=== PATIENT | female | born 1985 | race Hispanic/Latino ===

== ENCOUNTER 2018-10-20 18:30 | Observation (INO) | payer MEDICAID, SELFPAY ==
--- NOTE | 2018-10-20 22:35 | PDOC.FPROB ---
FMR OB H&P: HPI - History of Present Illness Chief Complaint: Uncontrolled DMII Indentification: 33yo @6wks by LMP History of Present Illness: 33yo @6wks by LMP directly admitted from [facility] for DMII with uncontrolled blood glucoses. She has attempted lifestyle modifications. Had been successful with lifestyle modifications. Prior to diabetes controlled with Metformin and Glyburide. Here to initiate insulin. Primary Care Physician: Dr. Kris Jay FMR OB H&P: Current - Care : 4 Para: 2011 Gestational age: 6wks Dating Criteria: LMP - OB Labs HIV: negative HepBsAg: negative Rubella: non-immune Gonorrhea: negative Chlamydia: negative Pap Smear: 2018 A1c: 7.5% GBS: unknown FMR OB H&P: History - Past Medical History PMH: DMII - OB History OB History: 2 prior C/S - Family History Family History: Noncontributory FMR OB H&P: Medications - Current Home Medications: Medication Instructions Recorded Confirmed Type glyBURIDE [Glyburide] 5 mg PO DAILY 10/20/18 10/21/18 History metFORMIN [Glucophage] 1,000 mg PO QAM-WM 10/20/18 10/21/18 History Vitamin 1 tablet PO DAILY 10/21/18 10/21/18 History Allergies/Adverse Reactions: Allergies Allergy/AdvReac Type Severity Reaction Status Date / Time No Known Drug Allergies Allergy Verified 10/20/18 23:57 FMR OB H&P: ROS - Review of Systems General: denies: fever/chills, weight/appetite/sleep changes, fatigue Eyes: denies: vision changes ENT: denies: nasal congestion, rhinorrhea Cardiovascular: denies: chest pain, palpitation Respiratory: denies: cough, congestion Gastrointestinal: denies: abdominal pain Genitourinary (Female): denies: dysuria, vaginal bleeding, contractions Neurologic: denies: numbness, headache FMR OB H&P: Vital Signs - Maternal Vital signs: Selected Entries 10/20/18 22:55 Temperature 97.7 F Pulse Rate 66 Blood Pressure 138/69 [Semi-Fowlers] Respiratory 16 Rate O2 Sat by Pulse 98 Oximetry Oxygen Delivery Room Air Method FMR OB H&P: Physical Exam - Physical Exam General: NAD, awake, alert and oriented HEENT: normocephalic and atraumatic, MMM, conjunctiva clear, grossly normal hearing, oropharynx clear Neck: supple, trachea midline Heart: RRR, no murmurs/rubs/gallops, pulses present, no edema General: CTAB, no respiratory distress, no wheezing Abdomen: soft, non-tender, bowel sound present Musculoskeletal: pulses present, no atrophy Neurological: no focal deficit Skin: good tugor, capillary refill <2 seconds Lymphatic: no petechia Psychiatric: intact recent and remote memory, good judgement and insight, normal mood and affect FMR OB H&P: Results - Labs Lab results: Laboratory Results - last 24 hr 10/20/18 19:15 POC Glucose 129 H FMR OB H&P: A/P - Problem List (1) Pregestational diabetes mellitus, modified White class B Current Visit: Yes Status: Acute Code(s): O24.319 - UNSP PRE-EXISTING DIABETES IN , UNSP TRIMESTER (2) First trimester Current Visit: Yes Status: Acute Code(s): Z34.91 - ENCNTR FOR SUPRVSN OF NORMAL PREG, UNSP, FIRST TRIMESTER Disposition: 33yo @6wks by LMP with pmh of DMII presents for uncontrolled DM for insulin initiation sIUP complicated by pregestational DM requiring insulin - A1c 7.5% on 10/16/18 - Starting 16U NPH in AM, 8U in HS - Humolog 5U TID with meals - Accuchecks Fasting and 2 hr postprandial - CC diet, and diabetes education - Admit to relationship management lead/womens Code Status: FULL DVT ppx: SCDs PCP: [facility] (Dr. Jay) Discussion: Date/Time: 10/20/182232 This H&P was discussed with Dr. Romero who agree with the above documentation and plan. Addendum - Attending - Attending Attestation Date/Time: 10/21/182201 I personally evaluated the patient and discussed the management with Dr. Whitten and team. I agree with the History, Examination, Assessment and Plan documented above with any addition or exceptions noted below. Being insulin. Complete 1t workup pending further discussion.
[2018-10-20] MEDS ORDERED: HumaLOG 300 UNITS/3 ML VIAL SC PRN (23:05)
[2018-10-20] MEDS ORDERED: Dextrose 50% Abboject 50 ML SYRINGE SLOW IVP PRN (23:05)
[2018-10-20] MEDS ORDERED: Dextrose 5% in Water 1,000 ML IV PRN (23:05)
[2018-10-21] MEDS: Sodium Chloride 0.9% 10 ML ONE ×2 (01:15→06:10)
[2018-10-21] MEDS ORDERED: Doxylamine 25 MG TAB PO PRN (02:26)
[2018-10-21] MEDS ORDERED: pyridOXINE 50 MG (B6) TAB PO PRN (02:26)
--- NOTE | 2018-10-21 06:56 | PDOC.OBAPN ---
[facility] OB AP PN: Sub - Interval History Hospital Day: 2 Chief Complaint: uncontrolled DMII Indentification: Interval History: Patient started on scheduled insulin regimen today. R OB AP PN: Obj - Maternal Vital signs: BP: 125/64 HR: 87 RR: 20 Tmax: 98F Pox: 98% on RA Wt: 80.4 kg [facility] OB PN: Exam - Physical Exam General: NAD, awake, alert and oriented HEENT: normocephalic and atraumatic, grossly normal vision, grossly normal hearing Neck: FROM Heart: RRR, normal S1/S2, pulses present, no edema General: CTAB, no respiratory distress, good air movement, no rales/rhonchi, no wheezing, no retractions Abdomen: soft, non-tender Musculoskeletal: FROM in all four extremities Neurological: cranial nerves II through XII intact, sensation to pain,touch and proprioception grossly normal, no focal deficit Skin: no rash, good tugor Lymphatic: no unusual bruising or bleeding, no purpura, no petechia Psychiatric: intact recent and remote memory, good judgement and insight, normal mood and affect [facility] OB PN: Data - Labs Lab results: Laboratory Results - last 24 hr 10/20/18 10/21/18 19:15 06:09 POC Glucose 129 H 176 H [facility] OB PN: A/P - Problem List (1) Pregestational diabetes mellitus, modified White class B Current Visit: Yes Status: Acute Code(s): O24.319 - UNSP PRE-EXISTING DIABETES IN , UNSP TRIMESTER (2) Anxiety Current Visit: Yes Status: Acute Code(s): F41.9 - ANXIETY DISORDER, UNSPECIFIED (3) First trimester Current Visit: Yes Status: Acute Code(s): Z34.91 - ENCNTR FOR SUPRVSN OF NORMAL PREG, UNSP, FIRST TRIMESTER Disposition: 33yo @ 6.1 wks by LMP with pmh of DMII presents for uncontrolled DM for insulin initiation sIUP complicated by uncontrolled pregestational DMII: - A1c 7.5% on 10/16/18. - Will start on VICKY insulin regimen with 16U NPH in AM & 8U in HS today. - Humalog 5U TID with meals. - Will get AM fasting & 2 hour PP Accuchecks & titrate insulin regimen PRN with 2hr PP goal of <120 and AM fasting of <95. - CC diet and diabetes education. UTI: - Urine culture from [facility] on 10/18/18 + for GBS and staph aureus. Will treat w/ PO Augmentin for 7 days based on sensitivities. Suspected vaginal candidiasis: - Per PCP patient was recently treated for candidiasis but patient still reporting vaginal itching this AM. - Will get a repeat VP3 and start on empiric topical clotrimazole this AM. Anxiety: - Patient reports being switched to a anxiolytic medication safe in recently. Will touch base with PCP & consider resuming while in the hospital. Discussion: Date/Time: 10/21/18 0654 This H&P was discussed with Dr. Renteria and Dr. Sarmiento who agree with the above documentation and plan. Addendum - Attending - Attending Attestation Date/Time: 10/21/18 1320 I personally evaluated the patient and discussed the management with Dr. Swanson. I agree with the History, Examination, Assessment and Plan documented above with any addition or exceptions noted below.
[2018-10-21] MEDS ORDERED: Amoxicillin/Potassium Clav 500 MG TAB PO SCH (09:00)
[2018-10-21] MEDS ORDERED: NPH, Human Insulin Isophane 300 UNIT/3 ML VIAL SC SCH ×5 (09:00→21:00)
[2018-10-21] MEDS: Prenatal Vitamin 1 TAB PO SCH (10:14)
[2018-10-21] MEDS: HumaLOG 300 UNITS/3 ML VIAL SC SCH ×2 (10:14→14:32)
[2018-10-21] MEDS ORDERED: Ondansetron ODT 4 MG TAB SL PRN (14:52)
--- NOTE | 2018-10-21 16:05 | ULT ---
TRANSVAGINAL PELVIC ULTRASOUND WITH DOPPLER: 10/21/18 HISTORY: female with unknown dates. FINDINGS: The uterus measures 9.6 x 4.1 x 6.6 cm. The right ovary measures 2.9 x 3.2 x 2.3 cm with demonstration of flow to the right ovary. The left ovary is not seen. A single intrauterine gestation is seen with measurements corresponding to an estimated gestational a ge of 6 weeks, 0 days and ADE[place]A at 06/16/19. The crown-rump length measures 0.41 cm and the gestational sac diameter measures 1 cm. the heart rate measures 117 beats per minute. No subchorionic blee d is seen. No free fluid is noted in the pelvis. IMPRESSION: Single live intrauterine of 6 weeks estimated gestational age and ADEOLA at 06/16/19. POS: [facility]
[2018-10-21] MEDS ORDERED: HumaLOG 300 UNITS/3 ML VIAL SC SCH (17:00)
[2018-10-21] MEDS ORDERED: Clotrimazole 2% 3 Day Vag Cr 22.2 GM TUBE VAG SCH (21:00)
[2018-10-21 21:56] LABS: Bilirubin Negative (Negative); Blood, Urine Negative (Negative); Clarity CLEAR (Clear); Glucose, Urine (Dipstick) Negative (Negative); Leukocyte Negative (Negative); Nitrite Negative (Negative); Protein, Urine (Dipstick) Negative (Neg-Trace); Specific Gravity, Urine 1.006 (1.002-1.036); Urobilinogen 0.2 mg/dL (0.2-1.0)
[2018-10-21 21:58] LABS: Bacteria/HPF None Seen HPF (None Seen); Hyaline Casts/LPF 4-6 HYALINE CAST LPF (0-3 Hyaline); Pathc Cast-AUWi Flag 1.76 (0-2.49); RBC/HPF 0-3 HPF (0-3); Squamous Epithelial 0-3 HPF (0-3); WBC/HPF None Seen HPF (0-3)
[2018-10-21 22:00] LABS: Urine Culture Reflex No No
--- NOTE | 2018-10-22 06:10 | PDOC.OBAPN ---
FMR OB AP PN: Sub - Interval History Hospital Day: 3 Chief Complaint: uncontrolled pre-GDM Indentification: Interval History: Patient started on VICKY insulin regimen yesterday w/ improved BG levels. FMR OB AP PN: Obj - Maternal Vital signs: BP: 118/58 HR: 62 RR: 16 Tmax: 98.4F Pox: 96% on RA Wt: 80.4 kg FMR OB AP PN: Exam - Physical Exam General: NAD, awake, alert and oriented HEENT: normocephalic and atraumatic, grossly normal vision, grossly normal hearing Neck: supple, FROM Heart: RRR, normal S1/S2, pulses present, no edema General: CTAB, no respiratory distress, good air movement, no rales/rhonchi, no wheezing, no retractions Abdomen: soft, non-tender, bowel sound present Musculoskeletal: FROM in all four extremities Neurological: cranial nerves II through XII intact, sensation to pain,touch and proprioception grossly normal, no focal deficit Skin: no rash, good tugor Lymphatic: no unusual bruising or bleeding, no purpura Psychiatric: intact recent and remote memory, good judgement and insight, normal mood and affect FMR OB AP PN: Data - Labs Lab results: Laboratory Results - last 24 hr 10/21/18 10/21/18 10/21/18 06:09 10:25 13:18 POC Glucose 176 H 177 H 101 Urine Color Urine Clarity Urine pH Ur Specific [place] Urine Protein Urine Glucose (UA) Urine Ketones Urine Blood Urine Nitrite Urine Bilirubin Urine Urobilinogen Ur Leukocyte Esterase Urine RBC Urine WBC Ur Squamous Epith Cells Urine Bacteria Hyaline Casts Urine Culture Reflexed 10/21/18 10/21/18 10/21/18 14:03 17:47 21:40 POC Glucose 103 156 H Urine Color YELLOW Urine Clarity CLEAR Urine pH 6.0 Ur Specific [place] 1.006 Urine Protein Negative Urine Glucose (UA) Negative Urine Ketones 15 H Urine Blood Negative Urine Nitrite Negative Urine Bilirubin Negative Urine Urobilinogen 0.2 Ur Leukocyte Esterase Negative Urine RBC 0-3 Urine WBC None Seen Ur Squamous Epith Cells 0-3 Urine Bacteria None Seen Hyaline Casts 4-6 HYALINE CAST H Urine Culture Reflexed No 10/22/18 02:09 POC Glucose 106 Urine Color Urine Clarity Urine pH Ur Specific [place] Urine Protein Urine Glucose (UA) Urine Ketones Urine Blood Urine Nitrite Urine Bilirubin Urine Urobilinogen Ur Leukocyte Esterase Urine RBC Urine WBC Ur Squamous Epith Cells Urine Bacteria Hyaline Casts Urine Culture Reflexed FMR OB AP PN: A/P - Problem List (1) Pregestational diabetes mellitus, modified White class B Status: Acute Code(s): O24.319 - UNSP PRE-EXISTING DIABETES IN , UNSP TRIMESTER (2) Anxiety Status: Acute Code(s): F41.9 - ANXIETY DISORDER, UNSPECIFIED (3) First trimester Status: Acute Code(s): Z34.91 - ENCNTR FOR SUPRVSN OF NORMAL PREG, UNSP, FIRST TRIMESTER Disposition: 33yo @ 6.2 wks by LMP & 6.1 week sono with pmh of DMII who presents for insulin initiation for uncontrolled DM. Uncontrolled pregestational DMII: - A1c 7.5% on 10/16/18. - Will continue VICKY insulin regimen with 25U NPH in AM & 9U HS. Will give humalog BID w/ breakfast and dinner at dose of 12 & 9U respectively. - Will get AM fasting & 2 hour PP Accuchecks & titrate insulin regimen PRN with 2hr PP goal of <120 and AM fasting of <95. - CC diet and diabetes education. - Will consider measuring a 24 hour urine protein to assess for renal impairment 2/2 DMII. sIUP @ 6.2 weeks by 6.1 week sono: - Dates confirmed via transvaginal US done yesterday in hospital. - Will continue routine antepartum care w/ PCP. Vulvovaginal candidiasis: - Confirmed via VP3 obtained yesterday AM. Patient never picked up gonazole from pharmacy. - Will continue 2% vaginal clotrimazole for total of 3 days. Anxiety: - Patient reports being switched to a anxiolytic medication safe in recently. - PCP denies starting on any anxiety meds. Will touch base with pharmacy today but troy recommend patient follow-up w/ PCP upon discharge to discuss starting meds for anxiety. UTI, ruled out: - Urine culture from [facility] on 10/18/18 + for GBS and staph aureus; however, UA via straight cath obtained yesterday was WNLs w/ only ketones noted. No need for abx treatment. Discussion: Date/Time: 10/22/18 0609 This H&P was discussed with Dr. Renteria and Dr. Sarmeinto who agree with the above documentation and plan. Addendum - Attending - Attending Attestation Date/Time: 10/23/18 0801 I personally evaluated the patient and discussed the management with Dr. Swanson. I agree with the History, Examination, Assessment and Plan documented above with any addition or exceptions noted below.
[2018-10-22] MEDS ORDERED: NPH, Human Insulin Isophane 300 UNIT/3 ML VIAL SC SCH (07:00)
[2018-10-22] MEDS ORDERED: HumaLOG 300 UNITS/3 ML VIAL SC SCH ×2 (07:30→17:00)
[2018-10-22] MEDS: HumuLIN 70/30 (300 UNITS/3 ML VIAL) SC SCH ×2 (11:23→18:56)
[2018-10-22] MEDS: Prenatal Vitamin 1 TAB PO SCH (14:13)
[2018-10-22 17:00] VITALS: BP 109/60; TEMP 97.7
== END 2018-10-22 19:45 | disposition home or self-care (01) ==
LOC: ERS 18:30 → 3SW 22:47 → INTOOBSV 22:47 → 3SE 10-21 09:03
PROVIDERS: ADMIT Family Medicine; ATTEND Family Medicine
DX: O24.111 Pre-existing type 2 diabetes mellitus, in pregnancy, first trimester (principal); E11.9 Type 2 diabetes mellitus without complications; Z3A.01 Less than 8 weeks gestation of pregnancy; Z79.84 Long term (current) use of oral hypoglycemic drugs
CPT/HCPCS: 36416; 51701; 76856; 81001; 87480; 87510; 87660; 99285; A4353; G0378; J1815

== ENCOUNTER 2019-04-14 08:40 | Outpatient (CLI) | payer OTHER ==
--- NOTE | 2019-04-14 09:37 | ULT ---
US OB Complete STANDARD History: Anatomy, size and dates, cervical length. Supervision about a high-risk pregnancies, second trimester Comparison: Pelvic ultrasound October 2018 Findings: Real-time grayscale, color, and spectral analysis of the gravid uterus was performed. Single viable intrauterine with average ultrasound age 33 week 3 day with estimated date of delivery May 30, 2019. Estimated weight is 5 lbs. 3 oz., 94th percentile. Biometry: Biparietal diameter: 8.22 cm, 33 week 1 day Head circumference: 29.11 cm, 32 week 1 day Abdominal circumference: 31.52 cm, 35 week 4 day Femur length: 6.31 cm, 32 week 5 day Heart rate documented at 140 bpm. The cervix measures 2.4 cm in length although can be underestimated with transabdominal approach. Anatomy: Lateral ventricular size upper limits of normal at 9 mm. Left renal pelvis measures 5 mm. The head, cerebellum, cisterna magna, four-chamber heart, stomach, cord insertion, bladder, spine, li ps/nose, upper extremities, lower extremity is, three-vessel cord are all normal. Amniotic fluid index measures 21.4 cm, mildly elevated. The placenta is anterior and the presentation is cephalic. No placenta previa. Impression: 1. Single viable intrauterine with average ultrasound age 33 week 3 day with estimated date of delivery May 30, 2019. 2. Mild prominence of the lateral ventricle measuring 9 mm. Close attention on follow-up imaging scot mmended. 3. Mild prominence left renal pelvis measuring 5 mm. 4. Cervical length of 2.4 cm although can be underestimated with transabdominal approach. 5. Increased amniotic fluid index of 21.4 cm.
== END 2019-04-14 08:41 | disposition home or self-care (01) ==
LOC: BICULT 08:40
PROVIDERS: ATTEND Family Medicine
DX: O09.893 Supervision of other high risk pregnancies, third trimester (principal); Z3A.33 33 weeks gestation of pregnancy
CPT/HCPCS: 76805

== ENCOUNTER 2019-05-08 15:27 | Day surgery (SDC) | payer OTHER ==
[2019-05-08 16:28] VITALS: BMI 40.0
[2019-05-08] MEDS ORDERED: FLU VACC QS2019-20(6MOS UP)/PF 60 MCG/0.5 ML SYRINGE IM ONE (16:45)
--- NOTE | 2019-05-08 17:31 | PDOC.LDHP ---
Labor and Delivery H&P HPI: Patient Dr Winkler Seen at Bedside at 1730 33 yo at 35 weeks 5 days here for CTX, no LOF, no VB. DM...A2DM (on insulin now but not prior to ; also had GDM in past). States occ CTX irregular. Good FM Review of Systems: complete ROS completed and as pet HPI Current gestational age (weeks): 35 (5) Due date: 05/18/19 Dating criteria: last menstrual period Grav: 4 Para: 3 OB History Details: CS X 2; A2DM...on insulin (levemir 8 units BID; Novolog 5 units TID) Current complications: gestational diabetes (A2DM...on insulin; states had GDM in past as well...doesnt take meds inbetween ) Abnormal US findings: No Current medications: pre- vitamins Previous surgical history: low tranverse CS (x2) Allergies/Adverse Reactions: Allergies Allergy/AdvReac Type Severity Reaction Status Date / Time No Known Drug Allergies Allergy Verified 10/20/18 23:57 Social history: none - Physical Exam Vital signs reviewed and normal: yes (123/7 afebrile 84 98%) General: NAD Abdomen: gravid FHT: category 1 [place] contractions every: Ut iritability - Vaginal Exam cm dilated: 0 Effacement: 25% Station: -1 - Assessment Prior CS x 2 at 35 weeks 5 days, A2DM...here for CTX irregular. - Plan Plan: observation in L&D (check accucheck; OBS for 2 hours; Dr Winkler out. I do not suspect true PTL at this time)
[2019-05-08] MEDS ORDERED: hydrALAZINE 20 MG/ML VIAL SLOW IVP PRN (17:38)
--- NOTE | 2019-05-08 17:38 | PDOC.EVN ---
Event Note - Event Note Event Note: Patient's problem list states "pregestational DM", but my history intake of her reveals A2DM...she denies having DM in between pregnancies. I dont have the Record...so I cannot reconcile that HX. I will check DStick now. On exam: patient also with left eye inferior lid conjunctival lesion...suspect blocked tear duct. I have suggetseed ED visit if released here to see if they can assist/lew.
[2019-05-08] MEDS ORDERED: Terbutaline Sulfate 1 MG/ML VIAL ONE (19:06)
--- NOTE | 2019-05-08 19:06 | PDOC.EVN ---
Event Note - Event Note Event Note: I reviewed the FHTs...great variability and accels, but occassional lates noted with irregular CTX pattern. CX after 2 hrs is unchanged at CLOSED, and clinically does not look like labor. I have ordered 1 L LR bolus to hydrate, and .25 terb for uterine relaxation
[2019-05-08] MEDS ORDERED: Terbutaline Sulfate 1 MG/ML VIAL SC SCH (19:15)
[2019-05-08] MEDS ORDERED: Lactated Ringer's 1,000 ML IV SCH (19:15)
--- NOTE | 2019-05-08 19:50 | PDOC.EVN ---
Event Note - Event Note Event Note: ASked to talk to patient by RN as she had questions about the terb. Patient was concerned the medicine would "hurt the baby". I reviewed its long HX of use and reviewed it was being recommended for symptomatic relief. She is ok with terb X1 NST reactive
--- NOTE | 2019-05-08 20:25 | PDOC.EVN ---
Event Note - Event Note Event Note: Feels better, FHTs reactive OK for DC
== END 2019-05-08 20:50 | disposition home or self-care (01) ==
LOC: L&D/OP 15:27
PROVIDERS: ATTEND Family Medicine
DX: O47.03 False labor before 37 completed weeks of gestation, third trimester (principal); O24.414 Gestational diabetes mellitus in pregnancy, insulin controlled; O34.211 Maternal care for low transverse scar from previous cesarean delivery; Z3A.35 35 weeks gestation of pregnancy; Z79.4 Long term (current) use of insulin
CPT/HCPCS: 36416; J3105

== ENCOUNTER 2019-05-18 05:32 | Inpatient (IN) | payer MEDICAID, OTHER, SELFPAY ==
[2019-05-18] MEDS ORDERED: Promethazine HCl 25 MG/ML VIAL IM PRN ×3 (06:00→10:32)
[2019-05-18] MEDS ORDERED: Azithromycin 500 MG in Sodium Chloride 0.9% 250 ML 250 ML IVPB SCH (06:00)
[2019-05-18] MEDS ORDERED: CEFAZOLIN 2 GM in Premix Bag 1 BAG IVPB SCH (06:00)
[2019-05-18] MEDS ORDERED: Lactated Ringer's 1,000 ML IV SCH (06:00)
[2019-05-18] MEDS ORDERED: Bicitra 30 ML UDCUP PO SCH (06:00)
[2019-05-18] MEDS ORDERED: hydrALAZINE 20 MG/ML VIAL SLOW IVP PRN ×2 (06:00→10:32)
[2019-05-18] MEDS ORDERED: Ondansetron PF 4 MG/2 ML Vial IVP PRN ×2 (06:00→08:11)
[2019-05-18 06:11] VITALS: BMI 40.0
[2019-05-18 06:31] LABS: Hemoglobin 12.5 g/dL (12.0-16.0); Mean Corpuscular HGB CONC 36.4 g/dL (32.0-36.0); Mean Corpuscular Hemoglobin 31.4 pg (27.0-31.0); Mean Corpuscular Volume 86.1 fL (78.0-98.0); Mean Platelet Volume 9.8 fL (7.4-10.4); Platelet Count 201 thou/uL (130-400); RBC Distribution Width 12.4 % (11.5-14.5); White Blood Cell (WBC) Count 7.2 thou/uL (4.8-10.8)
[2019-05-18 07:05] LABS: Syphilis Antibody Nonreactive (Nonreactive); Syphilis Antibody Index 0.05 S/CO (<1.00 Non-Reactive)
[2019-05-18 07:06] LABS: HBSAg Index 0.14 S/CO (0-0.99); Hep B Surf Ag Non-Reactive S/CO (NonReactive)
[2019-05-18 07:15] LABS: Glucose 127 mg/dL (70-105)
[2019-05-18] MEDS ORDERED: Oxytocin 10 UNITS/ML VIAL ONE ×2 (07:23→07:30)
[2019-05-18] MEDS ORDERED: MORPHINE 5 MG/10 ML PF VIAL ONE (07:24)
[2019-05-18] MEDS ORDERED: ePHEDrine/0.9% NaCl/PF SYRINGE 50 mg/10 ml ONE (07:48)
[2019-05-18] MEDS ORDERED: Ondansetron HCl/PF 4 MG/2 ML Vial IVP PRN (08:11)
[2019-05-18] MEDS ORDERED: Promethazine HCl 25 MG SUPP PR PRN (08:11)
[2019-05-18] MEDS ORDERED: diphenhydrAMINE 50 MG/ML VIAL IVP PRN (08:11)
[2019-05-18] MEDS ORDERED: Ketorolac Tromethamine 30 MG/ML VIAL IVP PRN (08:11)
[2019-05-18] MEDS ORDERED: Meperidine HCl/PF 25 MG/ML VIAL SLOW IVP PRN (08:11)
[2019-05-18] MEDS ORDERED: Naloxone HCl 0.4 mg/ml Vial IV PRN (08:11)
[2019-05-18] MEDS ORDERED: L&D-Morphine 4 MG/ML VIAL SLOW IVP PRN (08:11)
[2019-05-18] MEDS ORDERED: HYDROmorphone 2 MG/ML VIAL SLOW IVP PRN (08:11)
[2019-05-18] MEDS ORDERED: Naloxone HCl 0.4 mg/ml Vial IVP PRN ×2 (08:11)
[2019-05-18] MEDS ORDERED: Communication Order-Pharmacy FS SCH (08:15)
[2019-05-18] MEDS ORDERED: Ketorolac Tromethamine 30 MG/ML VIAL IVP SCH (08:15)
[2019-05-18] MEDS ORDERED: metroNIDAZOLE 500 MG in Premix Bag 1 BAG IVPB SCH (10:00)
[2019-05-18] MEDS ORDERED: NS / Oxytocin 40 units/1000ml 1,000 ML ONE (10:04)
[2019-05-18] MEDS ORDERED: Adacel (T-DAP) 0.5 ML SYRINGE IM ONE (10:32)
[2019-05-18] MEDS ORDERED: Lanolin Ointment 7 GM TUBE TOP PRN (10:32)
[2019-05-18] MEDS ORDERED: Bisacodyl 10 MG SUPP PR PRN (10:32)
[2019-05-18] MEDS ORDERED: NS / Oxytocin 40 units/1000ml 1,000 ML IV SCH (10:32)
[2019-05-18] MEDS ORDERED: Meperidine HCl/PF 25 MG/ML VIAL IM PRN (10:32)
[2019-05-18] MEDS ORDERED: diphenhydrAMINE 25 MG CAP PO PRN (10:32)
--- NOTE | 2019-05-18 12:28 | OP ---
DATE OF PROCEDURE: 05/18/2019 PREOPERATIVE DIAGNOSES: 1. A 37-week . 2. Previous section x2. 3. Pre-existing type 2 diabetes mellitus, class B. POSTOPERATIVE DIAGNOSES: 1. A 37-week . 2. Previous section x2. 3. Extensive intraabdominal adhesions. PERSONAL ASSISTANT: Dr. Swanson ANESTHESIA: Spinal. DESCRIPTION OF PROCEDURE: After informed consent was obtained from the patient , she was taken to the operating room, where spinal anesthesia was administered. She was prepped and draped in the usual sterile fashion. A Pfannenstiel incision was created over her previous scar and carried down to the fascia. The fascia was nicked in the midline, and the fascial incision was extended transversely with Rooney scissors. The fascia was grasped with Rocio's and elevated and the underlying rectus muscles were dissected free first bluntly and then sharply. This was repeated with the inferior fascial segment. The rectus muscles were elevated with a Rocio and entered with blunt digital dissection and the rectus muscles were below this sharply with Rooney scissors. Extensive dense adhesions were encountered along the entire uterine fundus. There was no area of weakness to the adhesions felt and so it was felt to be prudent to avoid blindly taking down the adhesions. At this point, the lower uterine segment was able to be dissected free with blunt dissection and Metzenbaum scissors. A bladder blade was inserted to create some additional space. The rectus muscles were incised laterally with the Bovie. Once the space was adequate for delivery, the lower uterine segment was incised with a clean #10 scalpel blade. Hysterotomy was extended superolaterally with blunt dissection. Membranes were ruptured with an Allis. Clear amniotic fluid was encountered. The vertex was delivered onto the operative field with fundal pressure and one pull of the vacuum with a max pressure of 40 mmHg with no pop-offs. The infant was delivered onto the operative field atraumatically and a vigorous male infant was handed to the staff in attendance. The placenta was manually extracted after cord blood was obtained. After delivery, there was no change in the adhesions and the uterus was unable to be exteriorized as no window in the adhesions was able to be palpated, so essentially from 1 cm superior to the hysterotomy were dense heavy adhesions circumferentially around the uterine fundus so extensive as to not be able to palpate the uterine fundus from the abdomen. The corners of the hysterotomy were able to be identified easily, however, and so the uterus was repaired with a running locking suture of 0 Vicryl in a single full-thickness layer followed by a series of interrupted [id number] sutures along the incision for hemostasis, which was observed. The abdomen was irrigated with saline. The incision was meticulously examined for hemostasis, which was observed several times. Pale yellow urine was noted to be draining into the [place] at this point. The fascia was then repaired with a running suture of 0 PDS. Three interrupted sutures of 3-0 Vicryl were placed in the subdermal layer to reapproximate the skin, which was closed with skin dimple. Sponge and instrument counts were correct x3. She tolerated the procedure well and suffered no acute complications. She was taken recovery in stable condition and the to the nursery in stable condition. Job ID: [id number] MTDD
[2019-05-18] MEDS ORDERED: Docusate Calcium (SURFAK) 240 MG CAP PO SCH (12:45)
[2019-05-18] MEDS ORDERED: Prenatal Vitamin 1 TAB PO SCH (13:00)
[2019-05-18] MEDS ORDERED: Ferrous Sulfate 325 MG TAB PO SCH (13:00)
[2019-05-18] MEDS: Ondansetron PF 4 MG/2 ML Vial IVP PRN ×2 (13:58→19:44)
[2019-05-18] MEDS: Ketorolac Tromethamine 30 MG/ML VIAL IVP SCH ×2 (14:01→18:47)
[2019-05-18] MEDS: CEFAZOLIN 2 GM in Premix Bag 1 BAG IVPB SCH ×2 (15:14→23:25)
[2019-05-18] MEDS: Ferrous Sulfate 325 MG TAB PO SCH (18:39)
[2019-05-18] MEDS: metFORMIN 500 MG TAB PO SCH (18:39)
[2019-05-18] MEDS: metroNIDAZOLE 500 MG in Premix Bag 1 BAG IVPB SCH (18:48)
[2019-05-18] MEDS: Lactated Ringer's 1,000 ML IV SCH (21:10)
[2019-05-18] MEDS: Docusate Calcium (SURFAK) 240 MG CAP PO SCH (23:20)
[2019-05-19] MEDS: metroNIDAZOLE 500 MG in Premix Bag 1 BAG IVPB SCH ×3 (02:35→18:58)
[2019-05-19] MEDS: Ketorolac Tromethamine 30 MG/ML VIAL IVP SCH (02:35)
[2019-05-19] MEDS: CEFAZOLIN 2 GM in Premix Bag 1 BAG IVPB SCH ×3 (06:20→22:26)
[2019-05-19] MEDS: Ibuprofen 800 MG TAB PO SCH ×3 (06:25→21:55)
[2019-05-19 07:33] LABS: Hemoglobin 10.3 g/dL (12.0-16.0); Mean Corpuscular HGB CONC 35.3 g/dL (32.0-36.0); Mean Corpuscular Hemoglobin 31.5 pg (27.0-31.0); Mean Corpuscular Volume 89.1 fL (78.0-98.0); Mean Platelet Volume 9.4 fL (7.4-10.4); Platelet Count 159 thou/uL (130-400); RBC Distribution Width 12.5 % (11.5-14.5); Red Blood Cell (RBC) Count 3.26 mill/uL (4.20-5.40); White Blood Cell (WBC) Count 10.1 thou/uL (4.8-10.8)
[2019-05-19] MEDS: metFORMIN 500 MG TAB PO SCH ×2 (10:02→17:21)
[2019-05-19] MEDS: Prenatal Vitamin 1 TAB PO SCH (10:05)
[2019-05-19] MEDS: Docusate Calcium (SURFAK) 240 MG CAP PO SCH ×2 (10:05→21:55)
[2019-05-19] MEDS: Ferrous Sulfate 325 MG TAB PO SCH ×2 (10:06→17:22)
[2019-05-19] MEDS: Simethicone Chewable 80 MG TAB PO PRN (10:09)
[2019-05-19] MEDS: HYDROcodone/Acetaminophen 5/325 mg Tablet PO PRN ×3 (10:10→21:55)
[2019-05-19] MEDS: Lactated Ringer's 1,000 ML IV SCH (17:03)
[2019-05-19] MEDS ORDERED: HumaLOG 300 UNITS/3 ML VIAL SC SCH (18:30)
[2019-05-19] MEDS: Insulin Glargine 10 UNITS in Pre-Filled Syringe SC SCH (21:56)
[2019-05-20] MEDS: metroNIDAZOLE 500 MG in Premix Bag 1 BAG IVPB SCH ×3 (03:13→18:34)
[2019-05-20] MEDS: HYDROcodone/Acetaminophen 5/325 mg Tablet PO PRN ×3 (04:04→16:47)
[2019-05-20] MEDS: Ibuprofen 800 MG TAB PO SCH ×3 (06:25→22:10)
[2019-05-20] MEDS: Simethicone Chewable 80 MG TAB PO PRN (06:25)
[2019-05-20] MEDS: CEFAZOLIN 2 GM in Premix Bag 1 BAG IVPB SCH ×3 (06:25→23:08)
[2019-05-20] MEDS: metFORMIN 500 MG TAB PO SCH ×2 (08:26→16:46)
[2019-05-20] MEDS: Docusate Calcium (SURFAK) 240 MG CAP PO SCH ×2 (08:26→22:11)
[2019-05-20] MEDS: Prenatal Vitamin 1 TAB PO SCH (08:27)
[2019-05-20] MEDS: Ferrous Sulfate 325 MG TAB PO SCH ×3 (08:27→16:46)
[2019-05-20] MEDS ORDERED: HumaLOG 300 UNITS/3 ML VIAL SC SCH (18:15)
[2019-05-20] MEDS: Insulin Glargine 10 UNITS in Pre-Filled Syringe SC SCH (22:11)
[2019-05-21] MEDS: Simethicone Chewable 80 MG TAB PO PRN (01:25)
[2019-05-21] MEDS: HYDROcodone/Acetaminophen 5/325 mg Tablet PO PRN (01:25)
[2019-05-21] MEDS: metroNIDAZOLE 500 MG in Premix Bag 1 BAG IVPB SCH ×2 (03:02→10:55)
[2019-05-21] MEDS: Ibuprofen 800 MG TAB PO SCH ×3 (05:24→22:32)
[2019-05-21] MEDS ORDERED: Sodium Chloride 0.9% 10 ML ONE ×2 (06:27→10:51)
[2019-05-21] MEDS: CEFAZOLIN 2 GM in Premix Bag 1 BAG IVPB SCH (06:31)
[2019-05-21] MEDS: Ferrous Sulfate 325 MG TAB PO SCH ×2 (07:54→17:24)
[2019-05-21] MEDS: Docusate Calcium (SURFAK) 240 MG CAP PO SCH ×2 (09:10→22:32)
[2019-05-21] MEDS: Prenatal Vitamin 1 TAB PO SCH (09:10)
[2019-05-21] MEDS: metFORMIN 500 MG TAB PO SCH ×2 (09:10→17:33)
[2019-05-21 20:35] VITALS: TEMP 98.2
[2019-05-21] MEDS: Insulin Glargine 10 UNITS in Pre-Filled Syringe SC SCH (22:32)
[2019-05-22] MEDS: HYDROcodone/Acetaminophen 5/325 mg Tablet PO PRN ×3 (02:32→18:26)
[2019-05-22] MEDS: Ibuprofen 800 MG TAB PO SCH ×2 (05:39→13:41)
[2019-05-22 08:42] VITALS: BP 154/74
[2019-05-22] MEDS: Prenatal Vitamin 1 TAB PO SCH (08:50)
[2019-05-22] MEDS: Docusate Calcium (SURFAK) 240 MG CAP PO SCH (08:50)
[2019-05-22] MEDS: metFORMIN 500 MG TAB PO SCH ×2 (08:52→18:26)
[2019-05-22] MEDS: Ferrous Sulfate 325 MG TAB PO SCH (08:55)
== END 2019-05-22 19:06 | disposition home or self-care (01) | DRG 786 ==
LOC: L&D 05:32 → 3SW 11:48
PROVIDERS: ADMIT Family Medicine; ATTEND Family Medicine
PROC: 10D00Z1 Extraction of Products of Conception, Low, Open Approach (ICD-10-PCS; principal; 2019-05-18)
DX: O34.211 Maternal care for low transverse scar from previous cesarean delivery (principal); O24.12 Pre-existing type 2 diabetes mellitus, in childbirth; O99.89 Other specified diseases and conditions complicating pregnancy, childbirth and the puerperium; N73.6 Female pelvic peritoneal adhesions (postinfective); E11.9 Type 2 diabetes mellitus without complications; Z3A.37 37 weeks gestation of pregnancy; Z37.0 Single live birth; Z79.4 Long term (current) use of insulin
CPT/HCPCS: 36415; 36416; 51702; 82947; 85027; 86780; 86850; 86900; 86901; 87340; J0456; J0690; J1815; J1885; J2274; J2405; J2590; J7050